=== PATIENT | female | born 1960 | race Caucasian/White ===

== ENCOUNTER 2017-04-01 20:09 | Emergency (ER) | payer MEDICAID ==
[~2017-04-01] VITALS: Ht 165.1 cm; Wt 61.2 kg
--- NOTE | 2017-04-01 20:34 | NUR ---
Patient discharged to home in stable conditon. Written and verbal after care instructions given. Patient verbalizes understanding of instructions.
== END 2017-04-01 20:34 | disposition home or self-care (01) ==
LOC: ER 20:11
DX: S51.852D Open bite of left forearm, subsequent encounter (principal); F17.200 Nicotine dependence, unspecified, uncomplicated; Z95.0 Presence of cardiac pacemaker; E78.5 Hyperlipidemia, unspecified; W54.0XXD Bitten by dog, subsequent encounter
CPT/HCPCS: A4663

== ENCOUNTER 2017-04-07 15:09 | Emergency (ER) | payer MEDICAID ==
[~2017-04-07] VITALS: Ht 165.1 cm; Wt 61.2 kg
[2017-04-07 15:32] VITALS: BP 144/86
== END 2017-04-07 15:33 | disposition home or self-care (01) ==
LOC: ER 15:09
DX: Z48.02 Encounter for removal of sutures (principal); I10 Essential (primary) hypertension; E78.5 Hyperlipidemia, unspecified; Z95.0 Presence of cardiac pacemaker; F17.200 Nicotine dependence, unspecified, uncomplicated
CPT/HCPCS: A4663